=== PATIENT | female | born 1955 | race Two or more races ===

== ENCOUNTER 2022-06-08 16:10 | Inpatient (IN) | payer OTHER, MEDICAID ==
[~2022-06-08] VITALS: Ht 172.7 cm; Wt 124.2 kg
[2022-06-08 16:40] LABS: Basophils # (auto) 0 10 ^3/uL (0-0.2); Basophils % (auto) 0.8 % (0.0-2.0); Eosinophils # (auto) 0 10 ^3/uL (0-0.8); Eosinophils % (auto) 0.6 % (0.0-7.0); Hematocrit 37.9 % (36.0-46.0); Hemoglobin 12.9 g/dL (12.2-16.2); Lymphocytes # (auto) 1.4 10 ^3/uL (0.4-5.4); Lymphocytes % (auto) 21.1 % (10.0-50.0); Monocytes # (auto) 0.7 10 ^3/uL (0-1.3); Monocytes % (auto) 10.8 % (0.0-12.0); Neutrophils # (auto) 4.3 10 ^3/uL (1.6-8.6); Neutrophils % (auto) 66.7 % (37.0-80.0); Nucleated Red Blood Cells % 0.1 %; Red Cell Distribution Width 13.8 % (11.8-14.3); White Blood Cell 6.5 10^3/uL (4.4-10.8)
[2022-06-08] MEDS ORDERED: MORPHINE SULFATE INJ 2 MG/ml SYRG IV ONE ×2 (16:45→17:45)
[2022-06-08] MEDS ORDERED: dilTIAZem 25 MG/5 ML VIAL IV ONE ×2 (16:45)
[2022-06-08] MEDS ORDERED: NIFEdipine ER 30 MG TAB PO ONE (16:45)
[2022-06-08 16:56] LABS: Albumin 3.5 g/dL (3.4-5.0); Calcium 9.1 mg/dL (8.5-10.1); Potassium 3.4 mmol/L (3.5-5.1)
[2022-06-08 16:58] LABS: INR 1.03 (0.9-1.15); Partial Thromboplastin Time 27.9 sec (24.6-33.4)
[2022-06-08 16:59] LABS: BUN/Creatinine Ratio 27.1; Bilirubin, Total 0.8 mg/dL (0.2-1.0); Total Protein 6.8 g/dL (6.4-8.2)
[2022-06-08] MEDS ORDERED: SODIUM CHLORIDE 0.9% 1,000 ML IV ONE (17:00)
[2022-06-08] MEDS ORDERED: IOHEXOL 350 MG/ML 100ML IJ ONE (17:06)
[2022-06-08] MEDS ORDERED: ENOXAPARIN SOD 120 MG/0.8 ML SYRINGE SC ONE (18:45)
[2022-06-08] MEDS ORDERED: ZOLPIDEM TARTRATE 5 MG TAB PO PRN (20:30)
[2022-06-08] MEDS ORDERED: ONDANSETRON HCL 4 MG/2 ML VIAL IV PRN (20:30)
[2022-06-08] MEDS ORDERED: LORazepam 0.5 MG TAB PO PRN (20:30)
[2022-06-08] MEDS ORDERED: NITROGLYCERIN 0.4 MG SL TAB SL PRN (20:30)
[2022-06-08] MEDS ORDERED: ACETAMINOPHEN 325 MG TAB PO PRN (20:30)
[2022-06-08] MEDS: SODIUM CHLORIDE 0.9% 1,000 ML IV SCH (21:25)
[2022-06-08] MEDS: MORPHINE SULFATE 4 MG/ML SYR/VIAL IV PRN (21:28)
[2022-06-08] MEDS: ATORVASTATIN 20 MG TAB PO SCH (22:30)
[2022-06-08] MEDS: METOPROLOL TARTRATE 25 MG TAB PO SCH (22:31)
[2022-06-09] VITALS (8 sets, daily range): BP systolic 80–108; BP diastolic 55–69
[2022-06-09] MEDS: MORPHINE SULFATE 4 MG/ML SYR/VIAL IV PRN (03:49)
[2022-06-09] MEDS ORDERED: FURO1TAB33 GT (05:22)
[2022-06-09] MEDS ORDERED: METO25TA5 PO (05:22)
[2022-06-09] MEDS ORDERED: SIMV-8 PO (05:22)
[2022-06-09 07:46] LABS: Basophils # (auto) 0 10 ^3/uL (0-0.2); Basophils % (auto) 0.5 % (0.0-2.0); Eosinophils # (auto) 0.1 10 ^3/uL (0-0.8); Eosinophils % (auto) 1.3 % (0.0-7.0); Hematocrit 31.9 % (36.0-46.0); Hemoglobin 10.9 g/dL (12.2-16.2); Lymphocytes # (auto) 1.3 10 ^3/uL (0.4-5.4); Lymphocytes % (auto) 25.6 % (10.0-50.0); Mean Corpuscular Hemoglobin 33.3 pg (28.0-32.0); Mean Corpuscular Hgb Conc. 34.2 g/dL (32.0-36.0); Mean Corpuscular Volume 97.5 fL (80.0-100.0); Monocytes # (auto) 0.7 10 ^3/uL (0-1.3); Monocytes % (auto) 13.3 % (0.0-12.0); Neutrophils # (auto) 3.1 10 ^3/uL (1.6-8.6); Neutrophils % (auto) 59.3 % (37.0-80.0); Nucleated Red Blood Cells % 0.1 %; Red Blood Cells 3.27 10^6/uL (4.0-5.20); Red Cell Distribution Width 13.9 % (11.8-14.3); White Blood Cell 5.2 10^3/uL (4.4-10.8)
[2022-06-09 07:55] LABS: BUN/Creatinine Ratio 24.6; Calcium 8.3 mg/dL (8.5-10.1)
[2022-06-09] MEDS: ASPirin 81 mg TAB PO SCH (08:53)
[2022-06-09] MEDS: LISINOPRIL 10 MG TAB PO SCH (08:53)
[2022-06-09] MEDS: CLOPIDOGREL BISULFATE 75 MG TAB PO SCH (08:54)
[2022-06-09] MEDS: METOPROLOL TARTRATE 25 MG TAB PO SCH ×2 (08:54→22:27)
[2022-06-09] MEDS: ENOXAPARIN SOD 100 MG/1 ML SYRINGE SC SCH ×2 (08:55→13:03)
[2022-06-09] MEDS: DOCUSATE SOD 100 MG CAP PO SCH (08:55)
[2022-06-09] MEDS: SODIUM CHLORIDE 0.9% 1,000 ML IV SCH ×2 (09:50→23:41)
[2022-06-09] MEDS: NIFEdipine ER 30 MG TAB PO SCH (10:00)
[2022-06-09] MEDS ORDERED: HYDROmorphone HCL 2 MG/ML VL/or syr IV ONE (12:00)
[2022-06-09] MEDS ORDERED: SODIUM CHLORIDE 0.9% 500 ML IV ONE (12:45)
[2022-06-09] MEDS: HYDROcodone-ACET 5/325MG TAB PO PRN ×2 (13:03→22:28)
[2022-06-09] MEDS: ATORVASTATIN 20 MG TAB PO SCH (22:26)
[2022-06-10] VITALS (7 sets, daily range): BP systolic 99–115; BP diastolic 60–78
[2022-06-10] MEDS: ASPirin 81 mg TAB PO SCH (09:40)
[2022-06-10] MEDS: LISINOPRIL 10 MG TAB PO SCH (09:40)
[2022-06-10] MEDS: DOCUSATE SOD 100 MG CAP PO SCH (09:40)
[2022-06-10] MEDS: CLOPIDOGREL BISULFATE 75 MG TAB PO SCH (09:41)
[2022-06-10] MEDS: NIFEdipine ER 30 MG TAB PO SCH (09:41)
[2022-06-10] MEDS: METOPROLOL TARTRATE 25 MG TAB PO SCH ×2 (09:41→21:52)
[2022-06-10] MEDS: ENOXAPARIN SOD 100 MG/1 ML SYRINGE SC SCH (09:42)
[2022-06-10] MEDS: SODIUM CHLORIDE 0.9% 1,000 ML IV SCH (11:56)
[2022-06-10] MEDS: APIXABAN 5 MG TAB PO SCH (21:51)
[2022-06-10] MEDS: ATORVASTATIN 20 MG TAB PO SCH (21:51)
[2022-06-11 05:00] VITALS: BP 117/75
[2022-06-11 08:30] VITALS: BP 114/67
[2022-06-11 09:00] VITALS: BP 114/67
[2022-06-11] MEDS: ASPirin 81 mg TAB PO SCH (09:42)
[2022-06-11] MEDS: METOPROLOL TARTRATE 25 MG TAB PO SCH (09:43)
[2022-06-11] MEDS: APIXABAN 5 MG TAB PO SCH ×2 (09:43→19:14)
[2022-06-11] MEDS: DOCUSATE SOD 100 MG CAP PO SCH (09:44)
[2022-06-11] MEDS ORDERED: POTASSIUM EFFERVESENT TAB 25 MEQ PO SCH (10:00)
[2022-06-11 13:00] VITALS: BP 114/71
[2022-06-11] MEDS ORDERED: METOPROLOL TARTRATE 25 MG TAB PO ONE (14:00)
[2022-06-11] MEDS ORDERED: APIX5TAB PO (14:16)
[2022-06-11 17:00] VITALS: BP 119/83
[2022-06-11 18:22] VITALS: BP 119/83
[2022-06-11] MEDS ORDERED: dilTIAZem HCL 60 MG TAB PO ONE (18:30)
[2022-06-11] MEDS ORDERED: METOPROLOL TARTRATE 50 MG TAB PO SCH (22:00)
== END 2022-06-11 20:00 | disposition home or self-care (01) | DRG 175 ==
LOC: EDBD 16:10 → ER 16:14 → TELE 20:26 → TELE-WESTW 06-09 03:22
PROVIDERS: ADMIT Hospitalist; ATTEND Nurse Practitioner Acute Care
DX: I26.94 Multiple subsegmental thrombotic pulmonary emboli without acute cor pulmonale (principal); J96.01 Acute respiratory failure with hypoxia; J98.11 Atelectasis; I82.403 Acute embolism and thrombosis of unspecified deep veins of lower extremity, bilateral; I50.22 Chronic systolic (congestive) heart failure; Z68.41 Body mass index [BMI] 40.0-44.9, adult; I11.0 Hypertensive heart disease with heart failure; I48.91 Unspecified atrial fibrillation; Z20.822 Contact with and (suspected) exposure to COVID-19; E87.6 Hypokalemia; D69.6 Thrombocytopenia, unspecified; E66.01 Morbid (severe) obesity due to excess calories; Z79.01 Long term (current) use of anticoagulants; Z80.8 Family history of malignant neoplasm of other organs or systems; Z82.49 Family history of ischemic heart disease and other diseases of the circulatory system; Z86.711 Personal history of pulmonary embolism; Z90.710 Acquired absence of both cervix and uterus; Z79.899 Other long term (current) drug therapy
CPT/HCPCS: 36415; 71045; 71260; 74177; 80048; 80053; 83735; 83880; 84484; 85025; 85610; 85730; 87426; 93005; 93306; 93970; 96361; 96372; 96374; 96375; 96376; 99291; G0378

== ENCOUNTER 2022-09-09 11:10 | Inpatient (IN) | payer OTHER, MEDICAID ==
[~2022-09-09] VITALS: Ht 165.1 cm; Wt 115.0 kg
[~2022-09-09 11:10] MED LIST: APIX5TAB PO; FURO1TAB33 GT; METO25TA5 PO; SIMV-8 PO
[2022-09-09] MEDS ORDERED: dilTIAZem 25 MG/5 ML VIAL IV ONE (11:30)
[2022-09-09] MEDS ORDERED: FUROSEMIDE 40 MG/4 ML VIAL IV ONE (11:30)
[2022-09-09 12:03] LABS: Basophils # (auto) 0.1 10 ^3/uL (0-0.2); Basophils % (auto) 0.5 % (0.0-2.0); Eosinophils # (auto) 0 10 ^3/uL (0-0.8); Eosinophils % (auto) 0.4 % (0.0-7.0); Hematocrit 43.1 % (36.0-46.0); Hemoglobin 14.4 g/dL (12.2-16.2); Lymphocytes # (auto) 1.7 10 ^3/uL (0.4-5.4); Lymphocytes % (auto) 15.4 % (10.0-50.0); Mean Corpuscular Hgb Conc. 33.5 g/dL (32.0-36.0); Mean Corpuscular Volume 95.7 fL (80.0-100.0); Monocytes % (auto) 8.6 % (0.0-12.0); Neutrophils # (auto) 8.5 10 ^3/uL (1.6-8.6); Neutrophils % (auto) 75.1 % (37.0-80.0); Nucleated Red Blood Cells % 0.2 %; Red Cell Distribution Width 14.4 % (11.8-14.3); White Blood Cell 11.3 10^3/uL (4.4-10.8)
[2022-09-09 12:22] LABS: Albumin 3.3 g/dL (3.4-5.0); BUN/Creatinine Ratio 16.3 (10.0-20.0); Calcium 8.6 mg/dL (8.5-10.1); Magnesium 2.3 mg/dL (1.6-2.6); Potassium 3.8 mmol/L (3.5-5.1)
[2022-09-09 12:24] LABS: Bilirubin, Total 1.7 mg/dL (0.2-1.0); Total Protein 7.1 g/dL (6.4-8.2)
[2022-09-09] MEDS ORDERED: AMIODARONE HCL 150 MG in D5W 5% 100 ML IV ONE (13:00)
[2022-09-09] MEDS ORDERED: AMIODARONE 450mg/250ml AE 250 ML IV SCH (13:15)
[2022-09-09] MEDS ORDERED: METOPROLOL TARTRATE 1MG/1ML-5ML VIAL IV ONE ×2 (13:30)
[2022-09-09] MEDS ORDERED: PANTOPRAZOLE 40 MG/10 ML VIAL INJ IV ONE (13:30)
[2022-09-09] MEDS ORDERED: NITROGLYCERIN 0.4 MG SL TAB SL PRN (13:30)
[2022-09-09] MEDS ORDERED: ACETAMINOPHEN 325 MG TAB PO PRN (13:30)
[2022-09-09] MEDS ORDERED: ALBUTEROL SULF 2.5 MG/0.5ML(0.5%) NEB SOLN NEB PRN (13:45)
[2022-09-09] MEDS ORDERED: POTASSIUM CHL 20MEQ/100ML 100 ML IV ONE (13:45)
[2022-09-09] MEDS ORDERED: ALBUMIN 5% 250 ML IV ONE (14:00)
[2022-09-09] MEDS ORDERED: ENOXAPARIN SOD 120 MG/0.8 ML SYRINGE SC ONE (14:00)
[2022-09-09] MEDS ORDERED: IOHEXOL 350 MG/ML 100ML IJ ONE (14:27)
[2022-09-09 14:37] LABS: Cholesterol 209 mg/dL (< 200); HDL Cholesterol 72 mg/dL (40-59); LDL Cholesterol 123 mg/dL (< 100); Triglycerides 82 mg/dL (< 150)
[2022-09-09] MEDS: MAGNESIUM SULFATE 1GM/100ML 100 ML IV SCH ×2 (15:21→16:02)
[2022-09-09] MEDS: MORPHINE SULFATE INJ 2 MG/ml SYRG IV PRN (20:18)
[2022-09-09] MEDS: ENOXAPARIN SOD 120 MG/0.8 ML SYRINGE SC SCH (22:02)
[2022-09-09 23:36] LABS: Urine Bacteria NONE SEEN /hpf (None Seen); Urine Blood TRACE /uL (Negative); Urine Mucus FEW (None Seen); Urine WBC 2 /hpf (0 - 5)
[2022-09-09] MEDS: AMIODARONE 450mg/250ml AE 250 ML IV SCH (23:49)
[2022-09-10] VITALS: BP 92/69
[2022-09-10] MEDS: MORPHINE SULFATE INJ 2 MG/ml SYRG IV PRN (05:12)
[2022-09-10 06:46] LABS: Basophils # (auto) 0.1 10 ^3/uL (0-0.2); Basophils % (auto) 0.7 % (0.0-2.0); Eosinophils # (auto) 0.1 10 ^3/uL (0-0.8); Eosinophils % (auto) 1.4 % (0.0-7.0); Hematocrit 37.8 % (36.0-46.0); Hemoglobin 12.7 g/dL (12.2-16.2); Lymphocytes # (auto) 1.6 10 ^3/uL (0.4-5.4); Lymphocytes % (auto) 20.5 % (10.0-50.0); Mean Corpuscular Hemoglobin 32.4 pg (28.0-32.0); Mean Corpuscular Hgb Conc. 33.7 g/dL (32.0-36.0); Mean Corpuscular Volume 96.2 fL (80.0-100.0); Monocytes # (auto) 0.7 10 ^3/uL (0-1.3); Neutrophils # (auto) 5.4 10 ^3/uL (1.6-8.6); Neutrophils % (auto) 68.4 % (37.0-80.0); Red Blood Cells 3.93 10^6/uL (4.0-5.20); Red Cell Distribution Width 13.9 % (11.8-14.3); White Blood Cell 7.8 10^3/uL (4.4-10.8)
[2022-09-10 07:00] LABS: Albumin 3.1 g/dL (3.4-5.0); Potassium 3.5 mmol/L (3.5-5.1)
[2022-09-10 07:04] LABS: BUN/Creatinine Ratio 19.2 (10.0-20.0); Total Protein 6.7 g/dL (6.4-8.2)
[2022-09-10] MEDS: ENOXAPARIN SOD 120 MG/0.8 ML SYRINGE SC SCH ×2 (09:47→21:53)
[2022-09-10] MEDS ORDERED: PANTOPRAZOLE 40 MG/10 ML VIAL INJ IV SCH (10:00)
[2022-09-10] MEDS: AMIODARONE 450mg/250ml AE 250 ML IV SCH (10:35)
[2022-09-10] MEDS: METOPROLOL TARTRATE 25 MG TAB PO SCH ×2 (11:45→21:53)
[2022-09-10 15:54] VITALS: BP 129/75
[2022-09-10 16:26] VITALS: BP 129/75
[2022-09-10 21:50] VITALS: BP 109/76
[2022-09-11 05:00] VITALS: BP 118/82
[2022-09-11] MEDS: ENOXAPARIN SOD 120 MG/0.8 ML SYRINGE SC SCH ×2 (08:26→22:04)
[2022-09-11] MEDS: METOPROLOL TARTRATE 25 MG TAB PO SCH (08:26)
[2022-09-11 09:00] VITALS: BP 136/77
[2022-09-11] MEDS ORDERED: AZITHROMYCIN 250 MG TAB PO ONE (11:15)
[2022-09-11] MEDS: guaiFENesin-DM 100/10mg/5ml SYR PO PRN ×3 (11:38→22:22)
[2022-09-11 13:00] VITALS: BP 103/63
[2022-09-11 16:54] VITALS: BP 111/60
[2022-09-11 22:00] VITALS: BP 124/86
[2022-09-11] MEDS: METOPROLOL TARTRATE 50 MG TAB PO SCH (22:04)
[2022-09-11] MEDS: DOXYCYCLINE 100 MG TAB/CAP PO SCH (22:04)
[2022-09-12 05:00] VITALS: BP 99/70
[2022-09-12] MEDS: RIVAROXABAN 20 MG TAB PO SCH (08:55)
[2022-09-12] MEDS: ENOXAPARIN SOD 120 MG/0.8 ML SYRINGE SC SCH (08:55)
[2022-09-12] MEDS: AMIODARONE HCL 200 MG TAB PO SCH (08:56)
[2022-09-12] MEDS: METOPROLOL TARTRATE 50 MG TAB PO SCH ×2 (08:56→21:35)
[2022-09-12] MEDS: DOXYCYCLINE 100 MG TAB/CAP PO SCH ×2 (08:56→21:35)
[2022-09-12] MEDS: guaiFENesin-DM 100/10mg/5ml SYR PO PRN (09:05)
[2022-09-12 09:26] VITALS: BP 117/79
[2022-09-12] MEDS ORDERED: AZITHROMYCIN 250 MG TAB PO SCH (10:00)
[2022-09-12 11:56] LABS: Magnesium 2.5 mg/dL (1.6-2.6)
[2022-09-12 12:50] VITALS: BP 97/76
[2022-09-12] MEDS ORDERED: DIGOXIN (250MCG/ML) 2 ML AMPULE IV ONE (13:45)
[2022-09-12 17:16] VITALS: BP 121/72
[2022-09-12 22:00] VITALS: BP 122/74
[2022-09-13] MEDS: AMIODARONE HCL 200 MG TAB PO SCH ×2 (00:05→10:00)
[2022-09-13] MEDS: guaiFENesin-DM 100/10mg/5ml SYR PO PRN ×2 (00:06→11:57)
[2022-09-13 05:00] VITALS: BP 100/63
[2022-09-13 08:15] VITALS: BP 102/72
[2022-09-13] MEDS ORDERED: DIGOXIN 0.125 MG TAB PO SCH (10:00)
[2022-09-13] MEDS: DOXYCYCLINE 100 MG TAB/CAP PO SCH (10:35)
[2022-09-13] MEDS: RIVAROXABAN 20 MG TAB PO SCH (10:40)
[2022-09-13] MEDS ORDERED: DOXY-286 PO (11:45)
[2022-09-13] MEDS ORDERED: METO-158 PO (11:45)
[2022-09-13] MEDS ORDERED: RIVA20TA PO (11:45)
[2022-09-13] MEDS ORDERED: DIGO0.12 PO (11:45)
[2022-09-13] MEDS: METOPROLOL TARTRATE 50 MG TAB PO SCH (11:46)
[2022-09-13 12:18] VITALS: BP 110/61
[2022-09-13 13:00] VITALS: BP 110/69
== END 2022-09-13 13:55 | disposition home or self-care (01) | DRG 291 ==
LOC: ER 11:10 → TELE 13:32 → TELE-WESTW 09-10 15:51
PROVIDERS: ADMIT Nurse Practitioner Family; ATTEND Family Medicine
DX: I11.0 Hypertensive heart disease with heart failure (principal); I50.31 Acute diastolic (congestive) heart failure; I24.9 Acute ischemic heart disease, unspecified; Z68.41 Body mass index [BMI] 40.0-44.9, adult; I48.0 Paroxysmal atrial fibrillation; E66.01 Morbid (severe) obesity due to excess calories; E78.00 Pure hypercholesterolemia, unspecified; Z20.822 Contact with and (suspected) exposure to COVID-19; J40 Bronchitis, not specified as acute or chronic; H91.90 Unspecified hearing loss, unspecified ear; I73.9 Peripheral vascular disease, unspecified; L65.9 Nonscarring hair loss, unspecified; Z79.01 Long term (current) use of anticoagulants; Z79.899 Other long term (current) drug therapy; Z80.8 Family history of malignant neoplasm of other organs or systems; Z82.49 Family history of ischemic heart disease and other diseases of the circulatory system; Z86.718 Personal history of other venous thrombosis and embolism; Z90.710 Acquired absence of both cervix and uterus; Z91.14 Patient's other noncompliance with medication regimen; Z86.711 Personal history of pulmonary embolism
CPT/HCPCS: 36415; 71045; 71275; 80053; 80061; 80162; 81001; 83036; 83605; 83735; 83880; 84132; 84443; 84484; 85025; 85379; 87040; 87426; 93005; 93970; 96374; 96375; 99291; C9113; G0378; J3480; J7060

== ENCOUNTER → 2022-11-25 | Outpatient (CLI) | payer MEDICARE, MEDICAID ==
[~2022-11-25] MED LIST changes: +DIGO0.12 PO; +DOXY-286 PO; +MAGN400T40 PO; +METO-158 PO; +RIVA20TA PO; -SIMV-8 PO; +SIMV20TA20 PO; +SOTA80TA PO; +SOTALOL HCL 80 MG TAB PO ONE
[2022-11-25 15:41] VITALS: BP 125/90
[2022-11-25 17:19] VITALS: BP 138/78
== END | disposition home or self-care (01) ==
LOC: CHF HDHVI 16:29
PROVIDERS: ATTEND Internal Medicine Cardiovascular Disease
DX: R94.31 Abnormal electrocardiogram [ECG] [EKG] (principal); I50.9 Heart failure, unspecified; I48.0 Paroxysmal atrial fibrillation; R00.0 Tachycardia, unspecified; R06.02 Shortness of breath
CPT/HCPCS: 93005; G0463

== ENCOUNTER → 2022-11-27 | Outpatient (CLI) | payer MEDICARE, MEDICAID ==
[~2022-11-27] MED LIST changes: -SOTALOL HCL 80 MG TAB PO ONE
[2022-11-27 11:27] VITALS: BP 131/82
[2022-11-27 12:16] VITALS: BP 105/76
== END | disposition home or self-care (01) ==
LOC: CHF HDHVI 11:21
PROVIDERS: ATTEND Internal Medicine Cardiovascular Disease
DX: R94.31 Abnormal electrocardiogram [ECG] [EKG] (principal); I50.23 Acute on chronic systolic (congestive) heart failure; R06.02 Shortness of breath; I48.21 Permanent atrial fibrillation
CPT/HCPCS: 93005; G0463

== ENCOUNTER → 2022-12-11 | Outpatient (CLI) | payer MEDICARE, MEDICAID ==
[2022-12-11 11:10] VITALS: BP 124/91
[2022-12-11 11:31] VITALS: BP 139/88
== END | disposition home or self-care (01) ==
LOC: Rad HDHVI 11:06
PROVIDERS: ATTEND Internal Medicine Cardiovascular Disease
DX: Z01.818 Encounter for other preprocedural examination (principal); I11.0 Hypertensive heart disease with heart failure; I50.43 Acute on chronic combined systolic (congestive) and diastolic (congestive) heart failure; I48.91 Unspecified atrial fibrillation; R06.02 Shortness of breath
CPT/HCPCS: 71046; G0463

== ENCOUNTER 2022-12-12 09:44 | Day surgery (SDC) | payer MEDICARE, MEDICAID ==
[2022-12-11 13:01] LABS: Basophils # (auto) 0 10 ^3/uL (0-0.2); Basophils % (auto) 0.8 % (0.0-2.0); Eosinophils # (auto) 0.1 10 ^3/uL (0-0.8); Eosinophils % (auto) 1.6 % (0.0-7.0); Hematocrit 40.8 % (36.0-46.0); Hemoglobin 13.7 g/dL (12.2-16.2); Lymphocytes # (auto) 1.7 10 ^3/uL (0.4-5.4); Lymphocytes % (auto) 31.3 % (10.0-50.0); Mean Corpuscular Hemoglobin 32.3 pg (28.0-32.0); Mean Corpuscular Hgb Conc. 33.6 g/dL (32.0-36.0); Mean Corpuscular Volume 96.1 fL (80.0-100.0); Monocytes # (auto) 0.6 10 ^3/uL (0-1.3); Monocytes % (auto) 10.3 % (0.0-12.0); Neutrophils # (auto) 3.1 10 ^3/uL (1.6-8.6); Nucleated Red Blood Cells % 0.1 %; Red Blood Cells 4.25 10^6/uL (4.0-5.20); Red Cell Distribution Width 14.5 % (11.8-14.3); White Blood Cell 5.6 10^3/uL (4.4-10.8)
[2022-12-11 13:29] LABS: INR 1.02 (0.9-1.15); Partial Thromboplastin Time 29.8 SEC (24.5-34.5)
[2022-12-11 13:40] LABS: BUN/Creatinine Ratio 16.9 (10.0-20.0); Potassium 4.1 mmol/L (3.5-5.1)
[~2022-12-12] VITALS: Ht 167.6 cm; Wt 117.9 kg
[~2022-12-12 09:44] MED LIST changes: -APIX5TAB PO; -DOXY-286 PO; -FURO1TAB33 GT; -METO-158 PO; -METO25TA5 PO; -SIMV20TA20 PO
[2022-12-12] MEDS ORDERED: MIDAZOLAM HCL 2MG/2ML 2ml VIAL (1mg/ml) IV ONE (10:15)
== END 2022-12-12 12:12 | disposition home or self-care (01) ==
LOC: CATH 09:44
PROVIDERS: ATTEND Internal Medicine Cardiovascular Disease
DX: I48.91 Unspecified atrial fibrillation (principal)
CPT/HCPCS: 36415; 80048; 85025; 85610; 85730; 92960; 93005; J2250; J7030; 99152

== ENCOUNTER → 2023-03-19 | Outpatient (CLI) | payer MEDICARE, MEDICAID ==
[2023-03-19 11:00] VITALS: BP 124/79; PULSE 88; RESP 20; O2SAT 97
[2023-03-19 12:30] VITALS: BP 139/80; PULSE 85; RESP 18; O2SAT 97
== END | disposition home or self-care (01) ==
LOC: CHF HDHVI 11:00
PROVIDERS: ATTEND Internal Medicine Cardiovascular Disease
DX: R06.02 Shortness of breath (principal); I48.0 Paroxysmal atrial fibrillation; R53.83 Other fatigue
CPT/HCPCS: 93005; G0463

== ENCOUNTER → 2023-03-31 | Outpatient (CLI) | payer MEDICARE, MEDICAID ==
[~2023-03-31] VITALS: Ht 167.6 cm; Wt 117.9 kg
[~2023-03-31] MED LIST changes: +ADENOSINE 90 MG/30 ML INJ IV ONE; +ADENOSINE 99 MG in GIVE UN-DILUTED 0 ML IV ONE
== END | disposition home or self-care (01) ==
LOC: Rad HDHVI 08:15
PROVIDERS: ATTEND Internal Medicine Cardiovascular Disease
DX: R06.02 Shortness of breath (principal); R00.2 Palpitations; E78.5 Hyperlipidemia, unspecified; I10 Essential (primary) hypertension; I48.0 Paroxysmal atrial fibrillation; E66.8 Other obesity; Z82.49 Family history of ischemic heart disease and other diseases of the circulatory system
CPT/HCPCS: 78452; 93005; 96374; 96375; A9500; J0153

== ENCOUNTER → 2024-08-05 | Outpatient (CLI) | payer MEDICARE, MEDICAID ==
[~2024-08-05] MED LIST changes: -ADENOSINE 90 MG/30 ML INJ IV ONE; -ADENOSINE 99 MG in GIVE UN-DILUTED 0 ML IV ONE
== END | disposition home or self-care (01) ==
LOC: Rad HDHVI 13:47
PROVIDERS: ATTEND Internal Medicine Cardiovascular Disease
DX: I48.91 Unspecified atrial fibrillation (principal)
CPT/HCPCS: 93306

== ENCOUNTER → 2024-08-18 | Outpatient (CLI) | payer MEDICARE, MEDICAID ==
[~2024-08-18] VITALS: Ht 167.6 cm; Wt 120.7 kg
[~2024-08-18] MED LIST changes: +AMIO200T33 PO; +MAGN100T9 PO; +MAGN241.6 PO; +METO-6 PO; +PANT40T PO; +RIV20T PO
--- NOTE | 2024-08-27 14:39 | DVHSR ---
APPROVED REPORT Exam: Nuclear Stress Test Indication: Dyspnea Ht: 5 ft 6 in Wt: 266 lbs BSA: 2.26 m2 HR: 84 bpm BP: 142/91 mmHg BMI: 42.92 Rhythm: NSR Medical History Medical History: HTN, Hypercholesterolemia, Atrial Fibrillation, Dizziness, CHF, Palpitations, SOB Medications: Sotalol, Magnesium Glycinate Allergies: No known drug allergies Cardiac Risk Factors: Family Hx of CAD Stress Test Details Stress Test: Exercise stress testing was performed using a modified Lul protocol. HR Resting HR: 84 bpmMax Heart Rate (APMHR): 152.278317 bpm Max HR Achieved: 133 bpmTarget HR (85% APMHR): 129.289517 bpm % of APMHR: 87.50 Recovery HR: 93 bpm HR response to stress: Normal HR response to stress BP Resting BP: 142/91 mmHg Max BP: 153/95 mmHg Recovery BP: 131/89 mmHg BP response to stress: Resting hypertension- appropriate response ECG Resting ECG: Sinus Rhythm Stress ECG: Sinus Tachycardia Arrhythmia: PVCs, PACs Recovery ECG: Sinus Rhythm Clinical Reason for Termination: Fatigue, Target HR achieved Stress Symptoms: Fatigue Exercise duration: 2 min 59 sec Exercise capacity: 2.3 METs Stress ECG Conclusion NON ISCHEMIC CLINICAL RESPONSE NON ISCHEMIC ECG RESPONSE NO REVERSIBLE DEFECTS CARDIOLITE STRESS IMAGING EF >55% NM EXAM: Myocardial Perfusion REST/STRESS Imaging Protocol: Rest Tc-99m/Stress Tc-99m 1 day Resting Data Rest SPECT myocardial perfusion imaging was performed in supine position 30 minutes following the int ravenous injection of 11 mCi of Tc-99m Sestamibi. Time of rest injection: 1311 Time of rest imagin Administration Route: IV Administration Site: Right AC Exercise Stress At peak stress, the patient was injected intravenously with 33 mCi of Tc-99m Sestamibi. Time of stress injection: 1410 Time of stress imagin Administration Route: IV Administration Site: Right AC Heart Rate at time of stress injection: 130 bpm. Patient continued to exercise for 1 minute(s). Gated Stress SPECT was performed 15 minutes after stress injection. The images were gated to evaluate regional wall motion and calculate left ventricular ejection fracti on. Comments Cardiolite injection at 1 minute, 36 seconds into test. Study Data Post stress, the left ventricular ejection was 60%.. Nuclear Conclusion NON ISCHEMIC CLINICAL RESPONSE NON ISCHEMIC ECG RESPONSE NO REVERSIBLE DEFECTS CARDIOLITE STRESS IMAGING EF >55%
== END | disposition home or self-care (01) ==
LOC: Rad HDHVI 12:45
PROVIDERS: ATTEND Internal Medicine Cardiovascular Disease
DX: I49.3 Ventricular premature depolarization (principal); R00.0 Tachycardia, unspecified; I49.1 Atrial premature depolarization; I11.0 Hypertensive heart disease with heart failure; E78.00 Pure hypercholesterolemia, unspecified; I48.91 Unspecified atrial fibrillation; Z68.41 Body mass index [BMI] 40.0-44.9, adult; I50.23 Acute on chronic systolic (congestive) heart failure; I48.0 Paroxysmal atrial fibrillation; R06.02 Shortness of breath; R42 Dizziness and giddiness; R00.2 Palpitations; Z82.49 Family history of ischemic heart disease and other diseases of the circulatory system; R06.00 Dyspnea, unspecified
CPT/HCPCS: 78452; 93017; 96374; A9500

== ENCOUNTER 2024-09-01 14:55 | Inpatient (IN) | payer MEDICARE, MEDICAID ==
[~2024-09-01] VITALS: Ht 167.6 cm; Wt 123.2 kg
[~2024-09-01 14:55] MED LIST changes: -AMIO200T33 PO; -MAGN100T9 PO; -MAGN241.6 PO; -METO-6 PO; -PANT40T PO; -RIV20T PO
[2024-09-01] MEDS ORDERED: MAGN100T9 PO (18:08)
[2024-09-01] MEDS ORDERED: SOTA80TA PO (18:08)
[2024-09-01] MEDS ORDERED: RIV20T PO (18:08)
[2024-09-01] MEDS ORDERED: MAGN241.6 PO (18:12)
[2024-09-01] MEDS ORDERED: PANT40T PO (18:12)
[2024-09-01 18:13] VITALS: BP 130/61; PULSE 94; TEMP 97.2; O2SAT 99
[2024-09-01 19:14] LABS: Basophils # (auto) 0 10 ^3/uL (0-0.2); Basophils % (auto) 0.3 % (0.0-2.0); Eosinophils # (auto) 0 10 ^3/uL (0-0.8); Eosinophils % (auto) 0.6 % (0.0-7.0); Hematocrit 44.7 % (36.0-46.0); Hemoglobin 14.6 g/dL (12.2-16.2); Lymphocytes # (auto) 1.5 10 ^3/uL (0.4-5.4); Lymphocytes % (auto) 21.2 % (10.0-50.0); Mean Corpuscular Hemoglobin 33.2 pg (28.0-32.0); Mean Corpuscular Hgb Conc. 32.7 g/dL (32.0-36.0); Mean Corpuscular Volume 101.4 fL (80.0-100.0); Monocytes # (auto) 0.6 10 ^3/uL (0-1.3); Neutrophils # (auto) 5.1 10 ^3/uL (1.6-8.6); Neutrophils % (auto) 69.9 % (37.0-80.0); Platelet Count (auto) 84 10^3/uL (140-450); Red Cell Distribution Width 13.9 % (11.8-14.3); White Blood Cell 7.3 10^3/uL (4.4-10.8)
[2024-09-01 19:27] LABS: INR 1.01 (0.9-1.15); Prothrombin Time 10.7 sec (9.3-11.8)
[2024-09-01 19:30] LABS: Potassium 3.5 mmol/L (3.5-5.1); Sodium 144 mmol/L (136-145)
[2024-09-01 19:31] LABS: Anion Gap 12 (5-15); Calcium 9.3 mg/dL (8.7-10.4); Carbon Dioxide 20 mmol/L (20-31)
[2024-09-01 19:36] LABS: BUN/Creatinine Ratio 16.7 (10.0-20.0); Blood Urea Nitrogen 16 mg/dL (9-23)
[2024-09-01 19:52] LABS: Chloride 112 mmol/L (98-107); Glucose 118 mg/dL (74-106)
[2024-09-01 20:00] VITALS: PULSE 121; PULSE 150; RESP 18; O2SAT 99
[2024-09-01] MEDS: SODIUM CHLORIDE 0.9% 1,000 ML IV SCH (20:00)
[2024-09-01 21:00] VITALS: BP_SYST 104; BP_SYST 113; BP_DIAS 59; BP_DIAS 61; PULSE 106; PULSE 107; RESP 17; TEMP 97.9; O2SAT 99
[2024-09-01] MEDS: AMIODARONE HCL 200 MG TAB PO SCH (21:23)
[2024-09-01] MEDS: METOPROLOL SUCCINATE XL 50 MG TAB PO SCH (21:23)
[2024-09-01 23:50] VITALS: BP 103/68; PULSE 107; RESP 16; TEMP 98; O2SAT 96
[2024-09-02] VITALS (7 sets, daily range): BP systolic 96–141; BP diastolic 57–69; PULSE 93–133; RESP 15–19; TEMP 97.6–98.1; O2SAT 93–97
--- NOTE | 2024-09-02 06:54 | DVH ---
EXAM: XR Chest, 1 View CLINICAL INDICATION: Per protocol prior to procedure TECHNIQUE: Frontal view of the chest. COMPARISON: CXRP on DOS: 06/08/22, CHEST PORTABLE on DOS: 06/08/22 FINDINGS: LUNGS AND PLEURAL SPACES: Mild pulmonary congestion. No consolidation. No pneumothorax. HEART: Unremarkable. No cardiomegaly. MEDIASTINUM: Unremarkable. Normal mediastinal contour. BONES/JOINTS: Unremarkable. No acute fracture. OTHER FINDINGS: . IMPRESSION: Mild pulmonary congestion.
--- NOTE | 2024-09-02 11:38 | DVHPN2 ---
Progress Note - Dictate Date Seen: Sep 01, 2024 Medical Necessity Reason Pt with a Central, PICC or Fol: No Subjective PT WITH SEVERE SOB WHILE IN MY OFFICE ECG AFIB WITH RVR AT A RATE OF 180 SHE RECEIVED TOPROL XL 100 MG PO DIG 0.75 IV FLUID STILL HR AT 140 NOW ADMITTED HX OF AFIB PAROXYSMAL ON SOTALOL vital signs Vital Sign Date Time Temp Pulse Resp B/P (MAP) Pulse Ox O2 Delivery O2 Flow Rate FiO2 09/02/24 09:30 97.8 94 19 105/61 (76) 93 97.8 09/01/24 20:00 Nasal Cannula* 2 28 Total Intake and Output 09/01/24 09/01/24 09/02/24 15:00 23:00 07:00 Intake Total 250 ml 0 ml Balance 250 ml 0 ml medications Current Medications Medications Dose Ordered Sig/Leelee Route Start Time Stop Time Status Last Admin Dose Admin Metoprolol Succinate 100 mg BID PO 09/01/24 22:00 09/01/24 21:23 100 MG Amiodarone HCl 400 mg Q8HR PO 09/01/24 22:00 09/01/24 21:23 400 MG Sodium Chloride 1,000 ml @ 75 mls/hr [id number] IV 09/01/24 20:00 09/01/24 20:00 75 MLS/HR Rivaroxaban 20 mg QPM PO 09/02/24 20:00 laboratory and microbiology Laboratory Tests 09/01/24 19:03 Test 09/01/24 19:03 Range/Units Serum Glucose 118 H 74-106 mg/dL Problem List SEVERE SOB WHILE IN MY OFFICE ECG AFIB WITH RVR AT A RATE OF 180 SHE RECEIVED TOPROL XL 100 MG PO DIG 0.75 IV FLUID STILL HR AT 140 NOW ADMITTED HX OF AFIB PAROXYSMAL ON SOTALOL Assessment/Plan CARDIOVERSION MONITOR THROMBOCYTOPENIA Plan discussed with: Patient LEESA LATHAM MD Sep 02, 2024 11:38
--- NOTE | 2024-09-02 12:54 | DVHHP2 ---
Review of Systems Allergies: Coded Allergies: NO KNOWN ALLERGIES (Unverified , 12/11/22) Medications Current Medications Medications Dose Ordered Sig/Leelee Route Start Time Stop Time Status Last Admin Dose Admin Metoprolol Succinate 100 mg BID PO 09/01/24 22:00 09/01/24 21:23 100 MG Amiodarone HCl 400 mg Q8HR PO 09/01/24 22:00 09/01/24 21:23 400 MG Sodium Chloride 1,000 ml @ 75 mls/hr [id number] IV 09/01/24 20:00 09/02/24 09:20 75 MLS/HR Rivaroxaban 20 mg QPM PO 09/02/24 20:00 Exam Vital Signs Vital Signs Date Time Temp Pulse Resp B/P (MAP) Pulse Ox O2 Delivery O2 Flow Rate FiO2 09/02/24 09:30 97.8 94 19 105/61 (76) 93 97.8 09/01/24 20:00 Nasal Cannula* 2 28 Labs/Xrays Labs Test 09/01/24 19:03 Range/Units White Blood Count 7.3 4.4-10.8 10^3/uL Red Blood Count 4.40 4.0-5.20 10^6/uL Hemoglobin 14.6 12.2-16.2 g/dL Hematocrit 44.7 36.0-46.0 % Mean Corpuscular Volume 101.4 H 80.0-100.0 fL Mean Corpuscular Hemoglobin 33.2 H 28.0-32.0 pg Mean Corpuscular Hemoglobin Concent 32.7 32.0-36.0 g/dL Red Cell Distribution Width 13.9 11.8-14.3 % Platelet Count 84 L 140-450 10^3/uL Mean Platelet Volume 8.0 6.9-10.8 fL Neutrophils (%) (Auto) 69.9 37.0-80.0 % Lymphocytes (%) (Auto) 21.2 10.0-50.0 % Monocytes (%) (Auto) 8.0 0.0-12.0 % Eosinophils (%) (Auto) 0.6 0.0-7.0 % Basophils (%) (Auto) 0.3 0.0-2.0 % Neutrophils # (Auto) 5.1 1.6-8.6 10 ^3/uL Lymphocytes # (Auto) 1.5 0.4-5.4 10 ^3/uL Monocytes # (Auto) 0.6 0-1.3 10 ^3/uL Eosinophils # (Auto) 0 0-0.8 10 ^3/uL Basophils # (Auto) 0 0-0.2 10 ^3/uL Nucleated Red Blood Cells 0.0 % Prothrombin Time 10.7 9.3-11.8 sec Prothrombin Time INR 1.01 0.9-1.15 Sodium Level 144 136-145 mmol/L Potassium Level 3.5 3.5-5.1 mmol/L Chloride Level 112 H 98-107 mmol/L Carbon Dioxide Level 20 20-31 mmol/L Anion Gap 12 5-15 Blood Urea Nitrogen 16 9-23 mg/dL Creatinine 0.96 0.550-1.02 mg/dL Glomerular Filtration Rate Calc 64 >90 mL/min BUN/Creatinine Ratio 16.7 10.0-20.0 Serum Glucose 118 H 74-106 mg/dL Calcium Level 9.3 8.7-10.4 mg/dL Assessment/Plan Assessment/Plan SEE DICTATED NOTE Plan discussed with: Patient Date of Service: Sep 02, 2024 Billing Provider: CINDY DELGADO MD Common Visit Codes: [id number] INP/OBS CARE (HIGH) Secondary Visit Codes: [id number] CARE PLAN 30 MINUTES CINDY DELGAOD MD Sep 02, 2024 12:54
--- NOTE | 2024-09-02 12:58 | ECG ---
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
[2024-09-02] MEDS ORDERED: ONDANSETRON HCL 4 MG/2 ML VIAL IV PRN (13:00)
--- NOTE | 2024-09-02 13:42 | DVHHP ---
ADMIT DATE: 09/01/2024 HISTORY OF PRESENT ILLNESS: The patient is a 69-year-old lady who came with a history of increasing palpitations and shortness of breath for the last 3 days. The patient was seen by Dr. Perry where she was found to have elevated heart rate in the 190s. The patient did not respond to beta blockers or digoxin and has now been admitted. She denies any syncope. No nausea or vomiting. No pedal edema. REVIEW OF SYSTEMS: Review of rest of systems are otherwise currently negative. PAST MEDICAL HISTORY: Significant for atrial fibrillation. MEDICATIONS: She takes magnesium oxide, digoxin, Xarelto and sotalol. ALLERGIES: No known drug allergies. SOCIAL HISTORY: Denies smoking or alcohol. Lives at home with her mother. FAMILY HISTORY: Negative. PHYSICAL EXAMINATION: GENERAL: The patient is awake, alert. VITAL SIGNS: Temperature 97.9, pulse of 117 per minute, irregular; blood pressure 105/61. SHEENT: Unremarkable. NECK: There is no JVD, no pedal edema. LUNGS: Equal bilaterally. No added sounds. CARDIOVASCULAR: S1, S2 is irregular. ABDOMEN: Soft. There is no organomegaly. NEUROLOGIC: Nonfocal. MUSCULOSKELETAL: Normal. ASSESSMENT AND PLAN: * Atrial fibrillation with rapid ventricular rate with secondary hypercoagulable state. The patient will continue on metoprolol and planned cardioversion is scheduled for tomorrow. * Questionable acute systolic/diastolic heart failure. An echocardiogram will be obtained. * Morbid obesity. ADVANCE CARE PLANNING: The patient is a full code. Time spent was 19 minutes. MD ARLINE Moraes/MISAEL/KEILA TID: [id number] RECEIPT: [id number]
[2024-09-02 15:57] LABS: Urine Bacteria FEW /hpf (None Seen); Urine Blood Negative /uL (Negative); Urine Clarity Clear (Clear); Urine Color Colorless (Yellow); Urine Protein, UAD Negative (Negative); Urine Specific Gravity 1.006 (1.001-1.035); Urine Squamous Epithelial Cell FEW /hpf (<5); Urine Urobilinogen Normal (Negative); Urine WBC < 1 /HPF (0-5); Urine pH 5.5 (5.0-9.0)
[2024-09-02] MEDS: RIVAROXABAN 20 MG TAB PO SCH (20:07)
[2024-09-02] MEDS: LORazepam 0.5 MG TAB PO PRN (23:20)
[2024-09-03] VITALS (13 sets, daily range): BP systolic 98–114; BP diastolic 53–70; PULSE 72–122; RESP 14–23; TEMP 97.7–98.2; O2SAT 94–99
[2024-09-03] MEDS: MIDAZOLAM HCL 2MG/2ML 2ml VIAL (1mg/ml) IV ONE (07:30)
[2024-09-03] MEDS: fentaNYL CITRATE 100 MCG/2 ML VL IV ONE (07:30)
[2024-09-03 07:33] LABS: Alanine Aminotransferase 22 U/L (7-40); Albumin 3.6 g/dL (3.2-4.8); Alkaline Phosphatase 91 U/L (46-116); Anion Gap 9 (5-15); Aspartate Aminotransferase 16 U/L (13-40); BUN/Creatinine Ratio 15.5 (10.0-20.0); Bilirubin, Total 0.7 mg/dL (0.2-1.0); Blood Urea Nitrogen 11 mg/dL (9-23); Calcium 8.8 mg/dL (8.7-10.4); Glucose 99 mg/dL (74-106); Potassium 3.7 mmol/L (3.5-5.1); Sodium 141 mmol/L (136-145); Total Protein 6.3 g/dL (5.7-8.2)
[2024-09-03 07:35] LABS: Carbon Dioxide 18 mmol/L (20-31); Chloride 114 mmol/L (98-107)
--- NOTE | 2024-09-03 08:39 | DVHPN2 ---
Progress Note - Dictate Date Seen: Sep 03, 2024 Medical Necessity Reason Pt with a Central, PICC or Fol: No Subjective PT WITH SEVERE SOB WHILE IN MY OFFICE ECG AFIB WITH RVR AT A RATE OF 180 SHE RECEIVED TOPROL XL 100 MG PO DIG 0.75 IV FLUID STILL HR AT 140 NOW ADMITTED HX OF AFIB PAROXYSMAL ON SOTALOL vital signs Vital Sign Date Time Temp Pulse Resp B/P (MAP) Pulse Ox O2 Delivery O2 Flow Rate FiO2 09/03/24 05:00 97.9 104 14 107/53 (71) 97 97.9 09/02/24 20:00 Nasal Cannula* 2 28 Total Intake and Output 09/02/24 09/02/24 09/03/24 15:00 23:00 07:00 Intake Total 240 ml 1080 ml 1325 ml Output Total 0 ml Balance 240 ml 1080 ml 1325 ml medications Current Medications Medications Dose Ordered Sig/Leelee Route Start Time Stop Time Status Last Admin Dose Admin Metoprolol Succinate 100 mg BID PO 09/01/24 22:00 09/02/24 21:38 100 MG Amiodarone HCl 400 mg Q8HR PO 09/01/24 22:00 09/03/24 06:01 400 MG Sodium Chloride 1,000 ml @ 75 mls/hr [id number] IV 09/01/24 20:00 09/03/24 04:41 75 MLS/HR Rivaroxaban 20 mg QPM PO 09/02/24 20:00 09/02/24 20:07 20 MG Acetaminophen 650 mg Q6HP PRN PO 09/02/24 13:00 Ondansetron HCl 4 mg Q6HPRN PRN IV 09/02/24 13:00 Lorazepam 0.5 mg Q8HP PRN PO 09/02/24 13:00 09/02/24 23:20 0.5 MG laboratory and microbiology Laboratory Tests 09/03/24 05:36 09/01/24 19:03 Test 09/03/24 05:36 Range/Units Serum Glucose 99 74-106 mg/dL Problem List SEVERE SOB WHILE IN MY OFFICE ECG AFIB WITH RVR AT A RATE OF 180 SHE RECEIVED TOPROL XL 100 MG PO DIG 0.75 IV FLUID STILL HR AT 140 NOW ADMITTED HX OF AFIB PAROXYSMAL ON SOTALOL Assessment/Plan CARDIOVERSION MONITOR THROMBOCYTOPENIA S/P CARDIOVERSION SINGLE BIPHASIC DIRECT CURRENT SUCCESSFUL TITRATE TOPROL XL TO 150 MG BID MAINTAIN AMIODARONE TO 400 MG BID DC IN AM AMBULATE Plan discussed with: Patient Critical Care Time(min): 35 LEESA LATHAM MD Sep 03, 2024 08:39
--- NOTE | 2024-09-03 08:42 | DVHOP2 ---
Operative Report PROCEDURE CARDIOVERSION FOR AFIB RVR PT WAS GIVE 2 MG OF VERSED WITH ADEQUATE CONSCIOUS SEDATION WAS ACHEIEVED 200j BIPASIC DIRECT CURRENT WAS DELIVERED PT CONVERTED TO SINUS RHYTHM 90 TITRATE METOPROLOL SUCCINATE TO 150 MG BID NO COMPLICATION PT TOLERATED PROCEDURE LEESA LATHAM MD Sep 03, 2024 08:42
[2024-09-03] MEDS: METOPROLOL SUCCINATE XL 50 MG TAB PO SCH (10:32)
--- NOTE | 2024-09-03 11:48 | ECG ---
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
--- NOTE | 2024-09-03 12:10 | DVHPN2 ---
Reviewed: Care Plan, H&P, Labs, Medications, Previous Orders, Radiology Changes from previous H/P or p: No Changes Objective Vitals Vital Signs Date Time Temp Pulse Resp B/P (MAP) Pulse Ox O2 Delivery O2 Flow Rate FiO2 09/03/24 10:35 74 110/54 (72) 09/03/24 09:02 23 99 09/03/24 09:00 97.8 97.8 09/03/24 07:35 Room Air* 0 21 Intake/Output Intake and Output 09/03/24 07:00 Intake Total 2645 ml Output Total 0 ml Balance 2645 ml Intake Oral 1645 ml IV Total 1000 ml Output Stool Total 0 ml # Voids 8 Medications Current Medications Medications Dose Ordered Sig/Leelee Route Start Time Stop Time Status Last Admin Dose Admin Amiodarone HCl 400 mg Q8HR PO 09/01/24 22:00 09/03/24 06:01 400 MG Sodium Chloride 1,000 ml @ 75 mls/hr [id number] IV 09/01/24 20:00 09/03/24 04:41 75 MLS/HR Rivaroxaban 20 mg QPM PO 09/02/24 20:00 09/02/24 20:07 20 MG Acetaminophen 650 mg Q6HP PRN PO 09/02/24 13:00 Ondansetron HCl 4 mg Q6HPRN PRN IV 09/02/24 13:00 Lorazepam 0.5 mg Q8HP PRN PO 09/02/24 13:00 09/02/24 23:20 0.5 MG Metoprolol Succinate 150 mg BID PO 09/03/24 08:45 09/03/24 10:32 150 MG Laboratory Results Laboratory Tests 09/01/24 19:03 09/03/24 05:36 Chemistry Test 09/03/24 05:36 Albumin 3.6 g/dL (3.2-4.8) Calcium Level 8.8 mg/dL (8.7-10.4) Total Protein 6.3 g/dL (5.7-8.2) LFT Test 09/03/24 05:36 Alanine Aminotransferase (ALT) 22 U/L (7-40) Alkaline Phosphatase 91 U/L (46-116) Aspartate Amino Transferase (AST) 16 U/L (13-40) Total Bilirubin 0.7 mg/dL (0.2-1.0) HgA1c, TSH Test 09/03/24 05:36 Thyroid Stimulating Hormone (TSH) 3.54 uIU/mL (0.55-4.78) Urinalysis Test 09/02/24 15:20 Urine Color Colorless (Yellow) Urine Clarity Clear (Clear) Urine pH 5.5 (5.0-9.0) Urine Specific [place] 1.006 (1.001-1.035) Urine Protein Negative (Negative) Urine Ketones Negative (Negative) Urine Blood Negative /uL (Negative) Urine Nitrite Negative (Negative) Urine Bilirubin Negative (Negative) Urine Urobilinogen Normal mg/dL (Negative) Urine Leukocyte Esterase Negative /uL (Negative) Urine RBC None seen /hpf (0 - 4) Urine Microscopic WBC < 1 /HPF (0-5) Urine Squamous Epithelial Cells Few /hpf (<5) Urine Bacteria Few /hpf (None Seen) H Urine Glucose Normal mg/dL (Normal) Labs and/or images reviewed: Labs reviewed by me, Image(s) reviewed by me Assessment/Plan Assessment/Plan * Atrial fibrillation with rapid ventricular rate with secondary hypercoagulable state. The patient will continue on metoprolol Status post cardioversion by * Questionable acute systolic/diastolic heart failure. * Morbid obesity. Plan discussed with: Patient Date of Service: Sep 03, 2024 Billing Provider: NORM MONGE MD Common Visit Codes: [id number] INP/OBS CARE(HIGH) NORM MONGE MD Sep 03, 2024 12:10
[2024-09-04 01:00] VITALS: BP 121/64; PULSE 67; RESP 18; TEMP 98.2; O2SAT 98
[2024-09-04] MEDS: ACETAMINOPHEN 325 MG TAB PO PRN (03:12)
[2024-09-04 07:44] VITALS: PULSE 92; RESP 17; O2SAT 94
[2024-09-04 08:00] VITALS: PULSE 80
[2024-09-04] MEDS ORDERED: RIVA20TA PO (08:34)
[2024-09-04] MEDS ORDERED: METO-6 PO (08:34)
[2024-09-04] MEDS ORDERED: AMIO200T33 PO (08:34)
--- NOTE | 2024-09-04 08:37 | DVHPN2 ---
Reviewed: Care Plan, H&P, Labs, Medications, Previous Orders, Radiology Changes from previous H/P or p: No Changes Objective Vitals Vital Signs Date Time Temp Pulse Resp B/P (MAP) Pulse Ox O2 Delivery O2 Flow Rate FiO2 09/04/24 07:44 92 17 94 Room Air* 0 21 09/04/24 04:12 98.0 09/04/24 01:00 121/64 (83) Intake/Output Intake and Output 09/04/24 07:00 Intake Total 1050 ml Balance 1050 ml Intake Oral 1050 ml # Voids 5 # Bowel Movements 1 Medications Current Medications Medications Dose Ordered Sig/Leelee Route Start Time Stop Time Status Last Admin Dose Admin Amiodarone HCl 400 mg Q8HR PO 09/01/24 22:00 09/04/24 06:14 400 MG Sodium Chloride 1,000 ml @ 75 mls/hr [id number] IV 09/01/24 20:00 09/03/24 04:41 75 MLS/HR Rivaroxaban 20 mg QPM PO 09/02/24 20:00 09/03/24 18:08 20 MG Acetaminophen 650 mg Q6HP PRN PO 09/02/24 13:00 09/04/24 03:12 650 MG Ondansetron HCl 4 mg Q6HPRN PRN IV 09/02/24 13:00 Lorazepam 0.5 mg Q8HP PRN PO 09/02/24 13:00 09/04/24 03:12 0.5 MG Metoprolol Succinate 150 mg BID PO 09/03/24 08:45 09/03/24 21:34 150 MG Laboratory Results Laboratory Tests 09/01/24 19:03 09/03/24 05:36 Urinalysis Test 09/02/24 15:20 Urine Color Colorless (Yellow) Urine Clarity Clear (Clear) Urine pH 5.5 (5.0-9.0) Urine Specific [place] 1.006 (1.001-1.035) Urine Protein Negative (Negative) Urine Ketones Negative (Negative) Urine Blood Negative /uL (Negative) Urine Nitrite Negative (Negative) Urine Bilirubin Negative (Negative) Urine Urobilinogen Normal mg/dL (Negative) Urine Leukocyte Esterase Negative /uL (Negative) Urine RBC None seen /hpf (0 - 4) Urine Microscopic WBC < 1 /HPF (0-5) Urine Squamous Epithelial Cells Few /hpf (<5) Urine Bacteria Few /hpf (None Seen) H Urine Glucose Normal mg/dL (Normal) Labs and/or images reviewed: Labs reviewed by me, Image(s) reviewed by me Assessment/Plan Assessment/Plan AFib with RVR with secondary hypercoagulable state status post successful cardioversion by Questionable systolic/diastolic congestive heart failure Morbid obesity Patient feeling better asymptomatic with stable vital signs Dr Perry texted RN Karey to DC patient on Xarelto 20 mg p.o. daily, Toprol-XL 150 mg p.o. b.i.d. and amiodarone 400 mg p.o. b.i.d. which were transmitted to the pharmacy Plan discussed with: Patient Date of Service: Sep 04, 2024 Billing Provider: NORM MONGE MD Common Visit Codes: [id number] INP/OBS CARE(HIGH) NORM MONGE MD Sep 04, 2024 08:37
--- NOTE | 2024-09-04 08:41 | DVHDS2 ---
Discharge Summary Date of Admission Sep 01, 2024 at 17:04 Date of Discharge: Sep 04, 2024 Admitting Diagnosis AFib with RVR Wounds: Cardioversion Labs/Diagnostic Data: Laboratory Results Test 09/03/24 05:36 09/02/24 15:20 09/01/24 19:03 Sodium Level 141 mmol/L (136-145) Potassium Level 3.7 mmol/L (3.5-5.1) Chloride Level 114 mmol/L (98-107) Carbon Dioxide Level 18 mmol/L (20-31) Anion Gap 9 (5-15) Blood Urea Nitrogen 11 mg/dL (9-23) Creatinine 0.71 mg/dL (0.550-1.02) Glomerular Filtration Rate Calc 93 mL/min (>90) BUN/Creatinine Ratio 15.5 (10.0-20.0) Serum Glucose 99 mg/dL (74-106) Calcium Level 8.8 mg/dL (8.7-10.4) Total Bilirubin 0.7 mg/dL (0.2-1.0) Aspartate Amino Transferase (AST) 16 U/L (13-40) Alanine Aminotransferase (ALT) 22 U/L (7-40) Alkaline Phosphatase 91 U/L (46-116) Total Protein 6.3 g/dL (5.7-8.2) Albumin 3.6 g/dL (3.2-4.8) Thyroid Stimulating Hormone (TSH) 3.54 uIU/mL (0.55-4.78) Urine Color Colorless (Yellow) Urine Clarity Clear (Clear) Urine pH 5.5 (5.0-9.0) Urine Specific [place] 1.006 (1.001-1.035) Urine Protein Negative (Negative) Urine Ketones Negative (Negative) Urine Blood Negative /uL (Negative) Urine Nitrite Negative (Negative) Urine Bilirubin Negative (Negative) Urine Urobilinogen Normal mg/dL (Negative) Urine Leukocyte Esterase Negative /uL (Negative) Urine RBC None seen /hpf (0 - 4) Urine Microscopic WBC < 1 /HPF (0-5) Urine Squamous Epithelial Cells Few /hpf (<5) Urine Bacteria Few /hpf (None Seen) Urine Glucose Normal mg/dL (Normal) White Blood Count 7.3 10^3/uL (4.4-10.8) Red Blood Count 4.40 10^6/uL (4.0-5.20) Hemoglobin 14.6 g/dL (12.2-16.2) Hematocrit 44.7 % (36.0-46.0) Mean Corpuscular Volume 101.4 fL (80.0-100.0) Mean Corpuscular Hemoglobin 33.2 pg (28.0-32.0) Mean Corpuscular Hemoglobin Concent 32.7 g/dL (32.0-36.0) Red Cell Distribution Width 13.9 % (11.8-14.3) Platelet Count 84 10^3/uL (140-450) Mean Platelet Volume 8.0 fL (6.9-10.8) Neutrophils (%) (Auto) 69.9 % (37.0-80.0) Lymphocytes (%) (Auto) 21.2 % (10.0-50.0) Monocytes (%) (Auto) 8.0 % (0.0-12.0) Eosinophils (%) (Auto) 0.6 % (0.0-7.0) Basophils (%) (Auto) 0.3 % (0.0-2.0) Neutrophils # (Auto) 5.1 10 ^3/uL (1.6-8.6) Lymphocytes # (Auto) 1.5 10 ^3/uL (0.4-5.4) Monocytes # (Auto) 0.6 10 ^3/uL (0-1.3) Eosinophils # (Auto) 0 10 ^3/uL (0-0.8) Basophils # (Auto) 0 10 ^3/uL (0-0.2) Nucleated Red Blood Cells 0.0 % Prothrombin Time 10.7 sec (9.3-11.8) Prothrombin Time INR 1.01 (0.9-1.15) Other Laboratory Tests 09/03/24 05:36 09/01/24 19:03 Brief Hx & Hospital Course: Patient admitted for AFib with a RVR underwent successful cardioversion by Dr. Perry, Dr. Perry cleared for discharge. He advised Xarelto 20 mg p.o. daily Toprol-XL 150 mg p.o. b.i.d. amiodarone 400 mg p.o. b.i.d. which were transmitted to the pharmacy Consults/Reason for consult Cardiology Dr. Perry Operations or Procedures Cardioversion Condition at Discharge: Fair Final Diagnosis/Problems List AFib with RVR with secondary hypercoagulable state status post successful cardioversion by Questionable systolic/diastolic congestive heart failure Morbid obesity Discharge Disposition: Home Discharge Instruct/Medications Diet: Cardiac 2g Na,low cholest Activity: Light activity Follow Up/Referral: Follow up with Dr Perry in two weeks Medications: Amiodarone 400 mg p.o. b.i.d. Toprol-XL 150 mg p.o. b.i.d. Xarelto 20 mg p.o. daily Transmitted to [facility] pharmacy 35 (Time taken for discharge summary 35 minutes) Discharge Statement: "Patient was advised to return to the ER or call 911 if any headaches, dizziness, shortness of breath, chest pain, abdominal pain, bleeding, fevers, or worsening of medical condition. Patient was counseled about treatment plan, medications, possible side effects, patientverbalized understanding. All questions were answered to the best of my ability. This discharge took greater then 30 minutes in planning, reviewing documentation, counseling the patient, and discussing with other team members." ASSESSMENT ASSESSMENT Hospital Course Improved Assessment AFib with RVR with secondary hypercoagulable state status post successful cardioversion by Questionable systolic/diastolic congestive heart failure Morbid obesity Date of Service: Sep 04, 2024 Billing Provider: NORM MONGE MD Common Visit Codes: [id number] DISCH DAY >30min NORM MONGE MD Sep 04, 2024 08:41
[2024-09-04 08:44] VITALS: BP 106/62; PULSE 76; TEMP 36.8
[2024-09-04 09:00] VITALS: BP 91/49; PULSE 64; RESP 18; TEMP 97.7; O2SAT 95
== END 2024-09-04 09:40 | disposition home or self-care (01) | DRG 308 ==
LOC: TELE-CENTR 17:04
PROVIDERS: ADMIT Family Medicine; ATTEND Family Medicine
PROC: 5A2204Z Restoration of Cardiac Rhythm, Single (ICD-10-PCS; principal; 2024-09-03)
DX: I48.0 Paroxysmal atrial fibrillation (principal); I50.43 Acute on chronic combined systolic (congestive) and diastolic (congestive) heart failure; D68.69 Other thrombophilia; Z68.41 Body mass index [BMI] 40.0-44.9, adult; E66.01 Morbid (severe) obesity due to excess calories; D69.6 Thrombocytopenia, unspecified; Z79.01 Long term (current) use of anticoagulants
CPT/HCPCS: 36415; 71045; 80048; 80053; 81001; 84443; 85025; 85610; 92960; 93005; 96374; 96375; 96376; 99152; G0378; G0463; J2250

== ENCOUNTER → 2024-09-01 | Outpatient (CLI) | payer MEDICARE, MEDICAID ==
[~2024-09-01] VITALS: Ht 30.5 cm; Wt 0.5 kg
[2024-09-01] MEDS: DIGOXIN (250MCG/ML) 2 ML AMPULE ONE ×2 (10:22→13:34)
[2024-09-01] MEDS: METOPROLOL SUCCINATE XL 50 MG TAB PO ONE ×2 (10:40→11:38)
[2024-09-01 10:55] VITALS: BP 103/79; PULSE 171; RESP 30; O2SAT 95
[2024-09-01] MEDS: DIGOXIN (250MCG/ML) 2 ML AMPULE IV ONE ×3 (11:04→14:35)
[2024-09-01 16:45] VITALS: BP 100/65; PULSE 125; RESP 28; O2SAT 98
== END | disposition home or self-care (01) ==
LOC: CHF HDHVI 11:10
PROVIDERS: ATTEND Internal Medicine Cardiovascular Disease
DX: I48.20 Chronic atrial fibrillation, unspecified (principal); I47.20 Ventricular tachycardia, unspecified; I11.0 Hypertensive heart disease with heart failure; I50.9 Heart failure, unspecified; E78.00 Pure hypercholesterolemia, unspecified; E66.01 Morbid (severe) obesity due to excess calories; Z68.41 Body mass index [BMI] 40.0-44.9, adult; Z79.01 Long term (current) use of anticoagulants
CPT/HCPCS: 96374; 96376; G0463; J1160; 96375

== ENCOUNTER → 2025-01-11 | Outpatient (CLI) | payer MEDICARE, MEDICAID ==
[~2025-01-11] MED LIST changes: +AMIO200T33 PO; +MAGN100T9 PO; +MAGN241.6 PO; +METO-6 PO; +PANT40T PO; +RIV20T PO
== END | disposition home or self-care (01) ==
LOC: Rad HDHVI 14:49
PROVIDERS: ATTEND Internal Medicine Cardiovascular Disease
DX: I08.3 Combined rheumatic disorders of mitral, aortic and tricuspid valves (principal); I10 Essential (primary) hypertension; I48.0 Paroxysmal atrial fibrillation
CPT/HCPCS: 93306